=== PATIENT | female | born 1980 | race Caucasian/White ===

== ENCOUNTER 2020-02-26 11:45 | Inpatient (IN) | payer OTHER, SELFPAY ==
[2020-02-26] VITALS (66 sets, daily range): BP systolic 85–130; BP diastolic 47–74; PULSE 40–108; TEMP 36.4–37.4; O2SAT 97–100; BMI 41.2
[2020-02-26] MEDS: Lactated Ringers 1,000 ML 50 ML IV (12:20)
[2020-02-26] MEDS: Lactated Ringers 500 ML 999 ML IV ×2 (12:28→14:45)
[2020-02-26 12:55] LABS: Absolute Lymphocyte Count 1.78 X10^3/uL (0.83-4.51); Absolute Neutrophil Count 11.8 X10^3/uL (2.0-7.7); Basophil# 0.02 X10^3/uL; Basophil% 0.1 % (0-1); Eosinophil# 0.03 X10^3/uL; Eosinophils% 0.2 % (0-5); Hematocrit 31.1 % (37-47); Hemoglobin 10.4 g/dL (12.0-15.0); Lymphocyte # 1.78 X10^3/ul (4.0); Lymphocyte % 12.2 % (19-41); Mean Corp Hgb Conc 33.4 g/dL (32-36); Mean Corpuscular Hgb 29.1 pg (27.0-32.0); Mean Corpuscular Volume 86.9 fL (81-99); Mean Platelet Vol. 11.3 fl (6.2-12.0); Monocyte# 0.76 X10^3/uL; Monocyte% 5.2 % (0-10); NRBC Flagged by Analyzer 0 % (0-5); Neutrophil # 11.84 X10^3/uL (2.7-7.7); Neutrophil % 81.5 % (47-70); Platelet Count 268 K/mm3 (150-450); RBC Distribution Width SD 40.8 fl (35.1-43.9); Red Blood Count 3.58 M/mm3 (4.2-5.4); White Blood Count 14.5 K/mm3 (4.4-11.0)
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
[2020-02-26 13:36] LABS: Mucous, Urine 0 SEEN /hpf (<or=2+)
[2020-02-26 13:43] LABS: Color, Urine Yellow (Yellow); Glucose, Dipstick Normal (Normal); Ketone-Dipstick 5 mg/dl (Negative); Leukocyte Esterase-Dipstick 500 /ul (Negative); Nitrite-Dipstick Negative (Negative); Occult Blood-Urine 10 /ul (Negative); Protein-Dipstick Negative (Negative); Urine Bilirubin Dipstick Negative (Negative); Urine Clarity Sl. Cloudy (Clear); Urine Urobilinogen 1 mg/dl (Normal)
[2020-02-26 13:47] LABS: Rubella IgG 119.2 IU/mL
[2020-02-26 13:53] LABS: Group B Strep DNA By PCR Negative (Negative); Internal Control PASS; Probe Check PASS; Specimen Processing Control PASS
[2020-02-26 13:59] LABS: Bacteria 1+ /hpf (None Seen); Red Blood Cells-Urine 0-5 SEEN /hpf (0-5); Squamous Epithelial Cells - UA 0-5 SEEN /hpf (5-10); White Blood Cells 25-50 SEEN /hpf (0-5)
[2020-02-26 14:13] LABS: Amphetamine Urine VISTA NEGATIVE (<1000 ng/mL); Barbiturate Urine VISTA NEGATIVE (< 200 ng/mL); Benzodiazepine Urine VISTA NEGATIVE (< 200 ng/mL); Cocaine Urine VISTA NEGATIVE (< 300 ng/mL); Ecstacy Urine VISTA NEGATIVE (< 500 ng/mL); Methadone Urine VISTA NEGATIVE (< 300 ng/mL); PCP Urine VISTA NEGATIVE (< 25 ng/mL); THC Urine VISTA NEGATIVE (< 50 ng/mL); Vista UDS pH Range 6
[2020-02-26 14:16] LABS: HIV - WCH Non-Reactive (Nonreactive); Hepatitis B Surface Antigen Non-Reactive (Nonreactive); Hepatitis C Antibody Non-Reactive (Nonreactive)
[2020-02-26] MEDS: fentaNYL-bupivacaine (epidural) 100 ML BAG EPIDURAL (14:20)
[2020-02-26] MEDS: Ondansetron 4 MG/2 ML Vial IV (14:54)
[2020-02-26] MEDS: 0.9% Saline Lock 10 ML Syringe IV ×2 (14:54→19:33)
[2020-02-26 15:13] LABS: Chlamydia Trachomatis by PCR Negative (Negative); Neisserai gonorrhoeae by PCR Negative (Negative); Probe Check PASS; Sample Adequacy Control PASS; Specimen Processing Control PASS
[2020-02-26] MEDS: Oxytocin 30 units/NS 500 ml 30 UNITS/500 ML IV.SOLN IV (15:34)
[2020-02-26] MEDS: Oxytocin 30 units/NS 500 ml 30 UNITS/500 ML IV.SOLN 334 UNITS IV (17:03)
[2020-02-26] MEDS: Methylergonovine 0.2 MG/ML Ampul IM (17:07)
--- NOTE | 2020-02-26 17:13 | PCM.OPRPT ---
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 Her membranes ruptured spontaneously yesterday at 11 AM. In spite of multiple hours of labor she never began having regular uterine contractions. She was therefore brought to the hospital for evaluation and further augmentation. On presentation she was found to be 8 cm. She had an epidural placed and then underwent augmentation with Pitocin. Amniotic Membrane Rupture Type: Spontaneous at home Rupture of Membrane time: 1100 on 02/24 Amniotic Fluid Description: Lightly stained meconium Final ALPA: 02/26/20 Final ALPA Source: LMP Gestational age: 40 Weeks and 0 Days Date of Procedure: 02/26/20 Pre-Operative Diagnosis: Active labor, prolonged rupture of membranes Post-Operative Diagnosis: Liveborn male in ADILSON position Surgery/ Procedure Performed: Spontaneous Vaginal Delivery Type of Anesthesia: Epidural Description of Procedure: Patient began pushing and delivered the head in the ADILSON presentation. The head was delivered atraumatically and a loose nuchal cord ?1 was identified and easily reduced over the 's head. The anterior and posterior shoulders delivered without complication followed by the rest of the infant and the infant was placed on the maternal abdomen. Delayed cord clamping was employed for approximately 60 seconds. Cord was clamped and cut and gentle traction was applied to the cord and the placenta delivered spontaneously immediately following it was noted to be intact with three-vessel cord. The perineum and vagina were inspected and no laceration was noted. EBL was 300 cc. Patient and tolerated delivery well. Presentation: ADILSON Placental Delivery Description: Spontaneous Multi Select Codes - Urinary/Genital Urinary/Genital CPT Codes: 98728 Vaginal Delivery Only
--- NOTE | 2020-02-26 17:22 | DCINST_ITS ---
Discharge Diet: No Restrictions Discharge Activity: Return to Normal Activity, May not drive while taking narcotic pain medications., May Shower May resume sexual activity in: 4-6 weeks Additional Activity Instructions:: Nothing in the vagina for 4-6 weeks. You may return to work/school in 6 weeks. Call your doctor if your incision/area has: Continuous Slow Oozing, Sudden Increased Bleeding, Increased Pain/ Swelling, Increased Redness, Foul Smelling Discharge Call your doctor if you observe: Fever of 101 or Higher Additional Instructions: If you experience any of the following, contact your healthcare provider. * Bleeding that soaks a pad every hour for 2 hours * Fever 100.4 or higher * Unrelieved incision or abdominal pain * Swelling, redness, discharge or bleeding from your incision or episiotomy site * Your incision begins to separate * Problems urinating (including inability to urinate or burning while urinating). * Visual changes * Severe headache * Flu-like symptoms * Pain or redness in one of both of your breasts * Pain, warmth, tenderness or swelling in your legs, especially the calf area * Frequent nausea and vomiting * Symptoms of depression or anxiety If you experience any of the following, call 911 or go to the nearest Emergency Room. * Chest pain * Problems breathing * Seizure activity * Partial or complete paralysis of a body part, slurred speech, weakness or drooping of the face, or a sudden inability to walk or hold your balance Allergies/Adverse Reactions: Allergies No Known Allergies Allergy (Verified 02/26/20 13:56) Medications to take at Discharge Naproxen [Naprosyn] 250 - 500 mg PO Q8H PRN PRN #30 tab 02/26/20 The following prescriptions were given: Naproxen [Naprosyn] 250 - 500 mg PO Q8H PRN PRN #30 tab PRN Reason: MILD PAIN Transmission Status: Received by [facility] When: Call to make an appointment with your doctor in 6 weeks. If you had elevated Blood Pressure or 4th degree laceration you will need to be seen in 2 weeks. Primary Care Physician: KERLINE MORGAN [Other] Test Results: Test results from this visit will be discussed in further detail at your follow- up appointment, if applicable. Proposed Discharge Date: 02/27/20
[2020-02-26] MEDS: miSOPROStol 200 MCG Tablet 1000 MCG RECTAL (17:49)
[2020-02-26] MEDS: Naproxen 250 MG Tablet 500 MG PO (20:39)
--- NOTE | 2020-02-26 20:54 | NURSING ---
pt. declining bath for infant while in hospital, discussed baby bath teaching with pt., verbalized understanding
[2020-02-27] VITALS (8 sets, daily range): BP systolic 96–111; BP diastolic 57–74; PULSE 72–88; RESP 14–18; TEMP 36.1–37.2; O2SAT 98
[2020-02-27] MEDS: Acetaminophen 500 MG Tablet 1000 MG PO (00:11)
[2020-02-27] MEDS: Naproxen 250 MG Tablet 500 MG PO ×2 (04:43→13:21)
--- NOTE | 2020-02-27 08:57 | PN.OBGYN_ITS ---
Patient Problems: Active and Suspected Problems (Last Updated 02/26/20 @ 13:[address] Zulma Flaherty MD) Active labor (Acute) Prolonged rupture of membranes (Acute) Subjective: Patient doing well without complaints. Denies pain. Bleeding is minimal Tolerating PO. Ambulating and voiding without difficulty. Breast feeding without difficulty. Denies chest pain, shortness of breath, calf pain/swelling, fevers, chills, lightheadedness. - Physical Exam Vitals/I&O's: Vital Signs Temp Pulse Resp BP Pulse Ox 97.7 F L 73 14 96/57 L 98 02/27/20 03:06 02/27/20 08:25 02/27/20 03:06 02/27/20 08:25 02/26/20 19:29 Oxygen Delivery Method Room Air Weight: 255 lb 8.252 oz Body Mass Index (BMI) 41.2 Intake and Output for Last 24 Hours 02/25/20 02/26/20 02/27/20 23:59 23:59 23:59 Intake Total 2701.47 / 2701.47 Output Total 910 / 910 Balance 1791.47 / 1791.47 General: Alert, Oriented x3, Cooperative HEENT: Atraumatic, PERRLA, EOMI, Normocephalic Neck: Supple Lungs: Normal air movement Cardiovascular: Regular rate Abdomen: Bowel Sounds Present, Soft, Non Tender, - - Fundus firm Extremities: No edema, No Calf Tenderness Skin: No rashes, No breakdown Neurological: Cranial nerves II-XII grossly intact Psych/Mental Status: Normal Affect, Appropriate Laboratory Results 02/26/20 12:15: Group B Strep DNA Negative, Specimen Comment Not Reportable 02/26/20 12:30: WBC 14.5 H, RBC 3.58 L, Hgb 10.4 L, Hct 31.1 L, MCV 86.9, MCH 29.1, MCHC 33.4, RDW Std Deviation 40.8, RDW Coeff of Cordell 13.0, Plt Count 268, MPV 11.3, Immature Gran % (Auto) 0.800, Neut % (Auto) 81.5 H, Lymph % (Auto) 12.2 L, [place] % (Auto) 5.2, Eos % (Auto) 0.2, Baso % (Auto) 0.1, Absolute Neuts (auto) 11.8 H, Absolute Lymphs (auto) 1.78, Nucleated RBC % 0 02/26/20 12:30: Rubella IgG Antibody 119.2 02/26/20 12:30: RPR Pending 02/26/20 12:30: Blood Type A POSITIVE, Antibody Screen NEGATIVE 02/26/20 12:30: Hep Bs Antigen Non-Reactive, Hepatitis C Antibody Non-Reactive, HIV 1&2 Antibody Non-Reactive 02/26/20 13:10: Urine Opiates Screen NEGATIVE, Urine Methadone Screen NEGATIVE, Ur Barbiturates Screen NEGATIVE, Ur Phencyclidine Scrn NEGATIVE, Ur Amphetamines Screen NEGATIVE, U Methamphetamin-MDMA NEGATIVE, U Benzodiazepines Scrn NEGATIVE, Urine Cocaine Screen NEGATIVE, U Cannabinoids Screen NEGATIVE, Ur Drug Screen Comment 02/26/20 13:10: Chlam trachomat DNA PCR Negative, N.gonorrhoeae DNA (PCR) Negative 02/26/20 13:10: Urine Color Yellow, Urine Clarity Sl. Cloudy, Urine pH 7.0, Ur Specific [place] 1.010, Urine Protein Negative, Urine Glucose (UA) Normal, Urine Ketones 5 H, Urine Occult Blood 10 H, Urine Nitrite Negative, Urine Bilirubin Negative, Urine Urobilinogen 1 H, Ur Leukocyte Esterase 500 H, Urine RBC 0-5 SEEN, Urine WBC 25-50 SEEN, Ur Squamous Epith Cells 0-5 SEEN, Urine Bacteria 1+, Urine Mucus 0 SEEN Current Medications Acetaminophen (Tylenol) 1,000 mg PO Q8H PRN PRN PRN Reason: Pain Score 1-3/10 Last Admin: 02/27/20 00:11 Dose: 1,000 mg Documented by: Bisacodyl (Dulcolax) 10 mg RECTAL UD PRN PRN Reason: If no BM Dibucaine (Dibucaine) 1 applic TOPICAL TID PRN PRN; Protocol PRN Reason: Discomfort Hydrocortisone (Hytone) 1 applic TOPICAL TID PRN PRN; Protocol PRN Reason: Discomfort Methylergonovine Maleate (Methergine) 0.2 mg IM X1 PRN PRN Reason: Excess bleeding/uterine atony Last Admin: 02/26/20 17:07 Dose: 0.2 mg Documented by: Naproxen (Naprosyn) 500 mg PO Q8H PRN PRN PRN Reason: Pain Score 1-3/10 Last Admin: 02/27/20 04:43 Dose: 500 mg Documented by: Ondansetron HCl (Zofran) 4 mg IV Q4H PRN PRN PRN Reason: Nausea Oxycodone HCl (Oxyir) 5 - 10 mg PO Q4H PRN PRN PRN Reason: Pain Score 4-10/10 Senna/Docusate Sodium (Senokot-S, Zo-Colace) 1 - 2 tablet PO DAILY PRN PRN PRN Reason: Constipation Simethicone (Mylicon) 80 mg PO PCHS PRN PRN Reason: Indigestion/Stomach pain Sodium Chloride () 5 - 15 ml IV UD PRN PRN Reason: SALINE FLUSH Last Admin: 02/26/20 19:33 Dose: 10 ml Documented by: Medical Necessity - Tobacco Use Smoking Status: Never smoker Assessment/Plan All Active Problems (Last Updated 02/26/20 @ 13:[address] Zulma Flaherty MD) Active labor (Acute) Prolonged rupture of membranes (Acute) s/p PPD #1 1. routine post delivery care 2. breast feeding- support given 3. rh positive 4. rubella immune 5. Anticipate DC to home later this evening
[2020-03-03 06:28] LABS: Rapid Plasmin Reagin (RPR) NONREACTIVE (NONREACTIVE)
== END 2020-02-27 17:39 | disposition home or self-care (01) | DRG 807 ==
PROVIDERS: Admitting Provider Obstetrics & Gynecology; Referring Provider Obstetrics & Gynecology; Visit Provider Obstetrics & Gynecology
DX: O42.92 Full-term premature rupture of membranes, unspecified as to length of time between rupture and onset of labor (principal); Z37.0 Single live birth; O77.0 Labor and delivery complicated by meconium in amniotic fluid; O69.81X0 Labor and delivery complicated by cord around neck, without compression, not applicable or unspecified; Z3A.40 40 weeks gestation of pregnancy
CPT/HCPCS: 59050; 80307; 81001; 85025; 86592; 86703; 86762; 86803; 86850; 86900; 86901; 87081; 87340; 87491; 87591; 87653; 99218; J7120; A4216; G0378; J2405

== ENCOUNTER → 2021-03-02 13:53 | Outpatient (CLI) | payer OTHER, SELFPAY ==
[2021-03-08 08:17] LABS: HPV APTIMA, High Risk Negative (Negative)
== END ==
PROVIDERS: Visit Provider Obstetrics & Gynecology
DX: Z12.4 Encounter for screening for malignant neoplasm of cervix (principal)
CPT/HCPCS: 87624; 88175; G0145

== ENCOUNTER → 2022-08-06 | Outpatient (CLI) | payer OTHER, SELFPAY ==
[2022-08-06 15:02] LABS: hCG Titer Quant., Serum 918 mIU/mL (1-3)
== END | disposition home or self-care (01) ==
LOC: LAB 12:14
PROVIDERS: Referring Provider Nurse Practitioner Women's Health; Visit Provider Nurse Practitioner Women's Health
DX: O20.0 Threatened abortion (principal); Z3A.00 Weeks of gestation of pregnancy not specified
CPT/HCPCS: 36415; 84702

== ENCOUNTER → 2023-06-18 | Outpatient (CLI) | payer OTHER, SELFPAY ==
[2023-06-18 09:13] LABS: Hemoglobin A1c 5.2 % (3.8-5.6)
[2023-06-18 09:15] LABS: Thyroid Stim Hormone (TSH) 2.42 uIU/mL (0.358-3.74)
[2023-06-18 09:18] LABS: hCG Titer Quant., Serum 72 mIU/mL (1-3)
[2023-06-20 09:08] LABS: Anti-Cardiolipin Ab, IgA, Qn < 9 APL U/mL (0-11); Anti-Cardiolipin Ab, IgG, Qn < 9 GPL U/mL (0-14); Anti-Cardiolipin Ab, IgM, Qn < 9 MPL U/mL (0-12); Beta-2-Glycoprotein I IgA <9 (0-25); Beta-2-Glycoprotein I IgG <9 (0-20); Beta-2-Glycoprotein I IgM <9 (0-32); Dilute Prothrombin Time (dPT) 43.5 sec (0.0-47.6); Dilute Russell Viper Venom 36.2 sec (0.0-47.0); Hexagonal Phase Phospholipid 2 5 sec (0-11); Interpretation Comment: (.); PTT-LA 47.6 sec (0.0-43.5); PTT-LA Mix 44.8 sec (0.0-40.5); Thrombin Time 16.1 sec (0.0-23.0); dPT Confirm Ratio 1.12 Ratio (0.00-1.34)
== END | disposition home or self-care (01) ==
PROVIDERS: Referring Provider Obstetrics & Gynecology; Visit Provider Obstetrics & Gynecology
DX: N92.0 Excessive and frequent menstruation with regular cycle (principal); O20.0 Threatened abortion; N96 Recurrent pregnancy loss; Z3A.00 Weeks of gestation of pregnancy not specified
CPT/HCPCS: 36415; 83036; 84443; 84702; 86146; 86147

== ENCOUNTER → 2023-06-20 | Outpatient (CLI) | payer OTHER, SELFPAY ==
[2023-06-20 08:39] LABS: hCG Titer Quant., Serum 134 mIU/mL (1-3)
== END | disposition home or self-care (01) ==
LOC: PAVLAB 08:00
PROVIDERS: Referring Provider Obstetrics & Gynecology; Visit Provider Obstetrics & Gynecology
DX: N92.0 Excessive and frequent menstruation with regular cycle (principal)
CPT/HCPCS: 36415; 84702

== ENCOUNTER → 2023-07-05 | Outpatient (CLI) | payer OTHER, SELFPAY ==
--- NOTE | 2023-07-05 11:00 | US_ITS ---
HISTORY: viability -- 6-7 weeks gestation for viability. LMP 05/19/2023. TECHNIQUE: Transvaginal and transabdominal pelvic ultrasound was performed. 70 images. COMPARISON: None. FINDINGS: UTERUS: 9.9 x 4.9 x 6.3 cm. Cervix closed. RIGHT OVARY: 1.5 x 3.5 x 4.1 cm with a 1.1 cm dominant follicle. No adnexal masses. LEFT OVARY: 2.2 x 3 x 3.4 cm. No adnexal masses. FREE FLUID: None. INTRAUTERINE GESTATIONAL SAC: Single. Mean sac diameter 9 mm corresponding to 5 weeks 5 days. YOLK SAC: 4 mm. POLE: Absent. US/Transvaginal w/Preg US IMPRESSION: Intrauterine with an estimated gestational age of 5 weeks 5 days based on mean sac diameter. No pole at this time; recommend close short-term interval follow-up to assess viability. Electronically Signed: Ingrid Sanchez MD at 13:38 EST ,
--- OUTSIDE RECORDS SUMMARY | 2023-07-05 12:11 | XMS RPT_ITS | CCD ---
Author Name Unknown Address [address] [place] [address] Organization [facility] Care Team Providers Care Greenhouse Florist Name Role Phone Sosa APONTE Weems Primary Care Provider Allergies Allergy Classification Reported Allergen(s) Allergy Type Date of Onset Reaction(s) Facility (1 source) Codeine Drug Allergy 03-11-2015 Nausea And Vomiting [facility] Medications Current Medications Medication Drug Class(es) Dates Sig (Normalized) Sig (Original) Ascorbic Acid (1 source) Vitamin C Ascorbic Acid (VITAMIN C PO) Take by mouth daily 0 Active Calcium (1 source) Phosphate Binder, Calcium CALCIUM PO Take by mouth 0 Active Magnesium (1 source) MAGNESIUM PO Zhang e by mouth daily 0 Active Vit-Fe Fumarate-FA ( PO) (1 source) Vit-Fe Fumarate-FA ( PO) Take by mouth 0 Active sodium chloride flush 0.9 % injection 3 mL (1 source) Start: 10-20-2021 sodium chloride flush 0.9 % injection 3 mL VITAMIN D PO (1 source) VITAMIN D PO Zhang e by mouth daily Wit K2 0 Active Zinc (1 source) ZINC PO Take by mouth daily 0 Active Completed/Discontinued Medications Medication Drug Class(es) Dates Sig (Normalized) Sig (Original) 50 ml sodium chloride 9 mg/ml injection (2 sources) Start: 10-20-2021 End: 10-20-2021 0.9 % sodium chloride bolus Problems Active Problems Problem Classification Problem Date Documented Da te Episodic/Chronic Hemorrhage during ; abruptio placenta; placenta previa (2 sources) Bleeding from female genital tract during ; Translations: [Antepartum hemorrhage, unspecified, unspecified trimester] Onset: 10-20-2021 Episodic Other congenital anomalies (1 source) Talipes equinovarus; 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] Onset: 03-11-2015 03-11-2015 Chronic Spontaneous (2 sources) Miscarriage; Translations: [Complete or unspecified spontaneous without complication] Onset: 10-20-2021 Episodic Past or Other Problems Problem Classification Problem Date Documented Da te Episodic/Chronic Other complications of (1 source) High risk ; Translations: [Supervision of high risk , unspecified, unspecified trimester] Onset: 03-11-2015 03-11-2015 Episodic Results Test Name Value Interpretation Reference Range Facil ity Vital Signs Date Time Vital Sign Value Performing Clinician Faci lity 10-20-2021 23:34-0400 Diastolic blood pressure 70 mm[Hg] Lia sutton MD Work Phone: [facility] 10-20-2021 23:34-0400 Heart rate 113 /min Lia Tanner MD Work Phone: [facility] 10-20-2021 23:34-0400 Respiratory rate 18 /min Lia Tanner MD Work Phone: [facility] 10-20-2021 23:34-0400 SaO2% (BldA) [Mass fraction] 99 % Lia Tanner MD Work Phone: [facility] 10-20-2021 23:34-0400 Systolic blood pressure 112 mm[Hg] Lia Tanner MD Work Phone: [facility] 10-20-2021 20:18-0400 Body temperature 97.59 [degF] Lia Tanner MD Work Phone: [facility] 10-20-2021 19:47-0400 Body height 167.6 cm Lia Tanner MD Work Phone: [facility] 10-20-2021 19:47-0400 Body mass index (BMI) [Ratio] 33.89 kg/m2 Lia Tanner MD Work Phone: [facility] 10-20-2021 19:47-0400 Body weight 95.25 kg Lia Tanner MD Work Phone: [facility] Encounters Encounter Date Encounter Type Care Provider Facility Start: 07-17-2022 End: 07-17-2022 [facility] Start: 07-17-2022 End: 07-17-2022 Encounter for general adult medical examination without abnormal findings DANK SWAN [facility] Start: 10-20-2021 End: 10-21-2021 Emergency department patient visit Lia Tanner MD Work Phone: [facility] Emergency Dept Procedures Date Procedure Procedure Detail Performing Clinician Start: 10-20-2021 Us preg uterus real time w/image dcmtn transvag Chela Garcia PA-C Work Phone: Start: 10-20-2021 Antibody screen Lia Tanner MD Work Phone: Start: 10-20-2021 Blood typing serologic abo Chela Garcia PA-C Work Phone: Start: 10-20-2021 Comprehensive metabo lic panel Chela Garcia PA-C Work Phone: Start: 10-20-2021 PROTIME/INR & PTT Leeann Garcia PA-C Work Phone: Start: 03-11-2015 Microscopic observat ion [Identifier] in Cervix by Cyto stain Lia Tanner MD Work Phone: Plan of Treatment Date Care Activity Detail Author Start: 07-17-2022 End: 07-17-2022 Patient encounter procedure 07/17/2022 Office Visit Internal Medicine Dank Swan, [address] [place], [place] [id number] [facility] Start: 07-13-2022 Depression Screen Depression Screen [facility] Start: 07-13-2022 DTaP/Tdap/Td vaccine (1 - Tdap) DTaP/Tdap/Td vaccine (1 - Tdap) [facility] Payers Date Payer Category Payer Private Health Insurance [id number] Social History Date Type Detail Facility Start: 03-11-2015 Tobacco smoking stat [facility] Never smoked tobacco [facility] Work Phone: Start: 03-11-2015 Tobacco use and exposure Smokeless tobacco non-user [employer] ([facility]A Work Phone: Start: 07-13-2021 Alcohol intake Current drinke r of alcohol (finding) [employer] ([facility]A Work Phone: Start: 11-01-2017 History SDOH Alcohol Comment occasionally [facility] Work Phone: Start: 07-13-2021 History SDOH Financial 5 [facility] Work Phone: Start: 07-13-2021 History SDOH Food Worry 1 [employer] ([facility]A Work Phone: Start: 07-13-2021 History SDOH Transpo rt Med 2 [employer] ([facility]A Work Phone: Start: 1980 Sex Assigned At Not on file [facility] [email or web address] Work Phone: Start: 10-10-2021 End: 10-20-2021 Exposure to SARS-CoV-2 (event) Not sure [facility] Clinical Note 10-20-2021 Note Date & Type Note Facility 10-20-2021 Note This patient was sig ivy out to me by Chela Garcia PA-C at the end of her shift please see her history and physical on this patient. Upon my examination the patient is awaiting the results of a HOUSEKEEPING ATTENDANT consult for final disposition she is in no distress at this time. Family is at the bedside. ED Course as of 10/20/212320Oct 20, 20212320 TYPE AND SCREEN: ABO Grouping A Rh Type POS Antibody Screen NEG [SC] 2320 HCG, Quantitative, : hCG Quant 9,623 [SC] 2321 Comprehensive Metabolic Panel(!): Sodium 134(!) Potassium 3.9 Chloride 103 CO2 21(!) Anion Gap 11 GLUCOSE, FASTING,GF 156(!) BUN,BUNPL 15 Creatinine 0.87 eGFR >90.0 EGFR IF NonAfrican Citizen Of The [place] 83.4 CALCIUM, SERUM, 282990 9.8 Albumin 4.3 Total Protein 7.3 Bilirubin 0.4 Alk Phos 56 ALT 41(!) AST 38 [SC] 2321 Lipase: Lipase 75 [SC] 2321 Hemogram (CBC)(!): WBC 15.6(!) RBC 4.04 Hemoglobin Quant 11.6(!) Hematocrit 35.3 MCV 87.5 MCH 28.7 MCHC 32.8 RDW 12.8 Platelet Count 293 MPV 8.9 [SC] 2321 BP: 81/60 [SC] ED Course User Index [SC] Mo SHIRA Cortez CNP The patient was examined by the HOUSEKEEPING ATTENDANT resident and was cleared for discharge she is to follow-up with her PCP return for new or worsening symptoms. Impression Vaginal bleeding Miscarriage Disposition Discharge SHIRA Lassiter CNP 10/21/21 0010 [facility] Evaluation note Note Date & Type Note Facility documented in this encounter [facility] Work Phone: Hospital Discharge instructions Attachments Note Date & Type Note Facility Hospital Discharge instructions The following attachments cannot be sent through Care Everywhere.: Vaginal Bleeding (Central African)Miscarriage (Central African)documented in this encounter [facility] Work Phone: Advance Directives No Advanced Directives Records FoundDocuments on File Type Date Recorded Patient Rescue Instructor Expl anation ACP-Advance Directive ACP-Power of Coarse Wire Drawer Summary Purpose Family History No Family History Records FoundNo Family History Records Found Additional Source Comments Reason for Visit (unrecogniz ed section and content) Scheduled Active and Recently Administ ered Medications (unrecognized section and content) Linked Groups Order Group 1: Saline lock IV (COMPLETED) Routine, CONTINUOUS, Starting on Sat10/20/21 at 1945, Until Specified And sodium chloride flush 0.9 % injection 3 mLJump to med 3 mL, IntraVENous, EVERY 8 HOURS, First dose on Sat10/20/21 at 2000, Until Discontinued
Flush line with 3-5 mL
Care Teams (unrecognized sec tion and content) INFORMATION SOURCE (unrecogn ized section and content) DATE CREATED AUTHOR AUTHOR'S ORGANIZ ATION 07/18/2022 [facility] FOR RECORDS PERTAINING TO PATIENTS WHO ARE OR HAVE BEEN ENROLLED IN A CHEMICAL DEPENDENCY/SUBSTANCEABUSE PROGRAM, SOME INFORMATION MAY BE OMITTED. This clinical summary was aggregated from multiple sources. Caution should be exercised in using it in the provision of clinical care. This summary normalizes information from multiple sources, and as a consequence, information in this document may materially change the coding, format and clinical context of patient data. In addition, data may be omitted in some cases. CLINICAL DECISIONS SHOULD BE BASED ON THE PRIMARY CLINICAL RECORDS. [facility]. provides no warranty or guarantee of the accuracy or completeness of information in this document.
== END | disposition home or self-care (01) ==
PROVIDERS: Referring Provider Advanced Practice Midwife; Visit Provider Advanced Practice Midwife
DX: O20.0 Threatened abortion (principal); Z3A.00 Weeks of gestation of pregnancy not specified
CPT/HCPCS: 76817

== ENCOUNTER → 2023-07-20 | Outpatient (CLI) | payer OTHER, SELFPAY ==
--- OUTSIDE RECORDS SUMMARY | 2023-07-20 14:16 | XMS RPT_ITS | CCD ---
Author Name Unknown Address [address] [place] [address] Organization [facility] Care Team Providers Care Tooler Name Role Phone Sosa APONTE Weems Primary [...] 70 mm[Hg] Lia sutton MD Work Phone: [facility] 10-20-2021 23:34-0400 Heart rate 113 /min Lia Tanner MD Work Phone: [facility] 10-20-2021 23:34-0400 Respiratory rate 18 /min Lia Tanner MD Work Phone: [facility] 10-20-2021 23:34-0400 SaO2% (BldA) [Mass fraction] 99 % Lia Tanner MD Work Phone: [facility] 10-20-2021 23:34-0400 Systolic blood pressure 112 mm[Hg] Lia Tanner MD Work Phone: [facility] 10-20-2021 20:18-0400 Body temperature 97.59 [degF] Lia Tanner MD Work Phone: [facility] 10-20-2021 19:47-0400 Body height 167.6 cm Lia Tanner MD Work Phone: [facility] 10-20-2021 19:47-0400 Body mass index (BMI) [Ratio] 33.89 kg/m2 Lia Tanner MD Work Phone: [facility] 10-20-2021 19:47-0400 Body weight 95.25 kg Lia Tanner MD Work Phone: [facility] Encounters Encounter Date Encounter Type Care Provider Facility Start: 07-17-2022 End: 07-17-2022 [facility] Start: 07-17-2022 End: 07-17-2022 Encounter for general adult medical examination without abnormal findings DANK SWAN [facility] Start: 10-20-2021 End: 10-21-2021 Emergency department patient visit Lia Tanner MD Work Phone: [facility] Emergency Dept Procedures Date Procedure Procedure [...] Office Visit Internal Medicine Dank Swan, [address] [place], [place] [id number] [facility] Start: 07-13-2022 Depression Screen Depression Screen [facility] Start: 07-13-2022 DTaP/Tdap/Td vaccine (1 - Tdap) DTaP/Tdap/Td vaccine (1 - Tdap) [facility] Payers Date Payer Category Payer Private Health Insurance [id number] Social History Date Type Detail Facility Start: 03-11-2015 Tobacco smoking stat [facility] Never smoked tobacco [facility] Work Phone: Start: 03-11-2015 Tobacco use and exposure Smokeless tobacco non-user [facility] Work Phone: Start: 07-13-2021 Alcohol intake Current drinke r of alcohol (finding) [facility] Work Phone: Start: 11-01-2017 History SDOH Alcohol Comment occasionally [facility] Work Phone: Start: 07-13-2021 History SDOH Financial 5 [facility] Work Phone: Start: 07-13-2021 History SDOH Food Worry 1 [facility] Work Phone: Start: 07-13-2021 History SDOH Transpo rt Med 2 [facility] Work Phone: Start: 1980 Sex Assigned At Not on file [facility] [employer] Work Phone: Start: 10-10-2021 End: 10-20-2021 Exposure to SARS-CoV-2 (event) Not sure [facility] 10-20-2021 Note Date & Type Note Facility 10-20-2021 Note This patient was sig ivy out to me by Chela Garcia PA-C at the end of her shift please see her history and physical on this patient. Upon my examination the patient is awaiting the results of a DRUG SAFETY PHYSICIAN consult for final disposition she is in [...] Creatinine 0.87 eGFR >90.0 EGFR IF NonAfrican [place]ican 83.4 CALCIUM, SERUM, [id number] 9.8 Albumin 4.3 Total Protein 7.3 Bilirubin [...] CNP The patient was examined by the DRUG SAFETY PHYSICIAN resident and was cleared for discharge she is to follow-up with her PCP return for new or worsening symptoms. Impression Vaginal bleeding Miscarriage Disposition Discharge SHIRA Lassiter CNP 10/21/21 0010 [facility] Evaluation note Note Date & Type Note Facility documented in this encounter [facility] Work Phone: Hospital Discharge instructions Attachments Note Date & Type Note Facility Hospital Discharge instructions The following attachments cannot be sent through Care Everywhere.: Vaginal Bleeding (Bulgarian)Miscarriage (Bulgarian)documented in this encounter [facility] Work Phone: Advance Directives No Advanced Directives Records FoundDocuments on File Type Date Recorded Patient Store Director Expl anation ACP-Advance Directive ACP-Power of Flat Bed Knitter Summary Purpose Family History No Family History [...] DATE CREATED AUTHOR AUTHOR'S ORGANIZ ATION 07/18/2022 [facility] FOR RECORDS PERTAINING TO PATIENTS WHO ARE [...] BE BASED ON THE PRIMARY CLINICAL RECORDS. [facility]. provides no warranty or guarantee of the accuracy or completeness of information in this document.
[2023-07-20 15:37] LABS: hCG Titer Quant., Serum 20805 mIU/mL (1-3)
== END | disposition home or self-care (01) ==
LOC: LAB 14:13
PROVIDERS: Referring Provider Obstetrics & Gynecology; Visit Provider Obstetrics & Gynecology
DX: O26.859 Spotting complicating pregnancy, unspecified trimester (principal); Z3A.00 Weeks of gestation of pregnancy not specified
CPT/HCPCS: 36415; 84702

== ENCOUNTER → 2023-07-22 | Outpatient (CLI) | payer OTHER, SELFPAY ==
--- OUTSIDE RECORDS SUMMARY | 2023-07-22 14:40 | XMS RPT_ITS | CCD ---
Author Name Unknown Address [address] [place] [address] Organization [facility] Care Team Providers Care Non Profit Job Titles Name Role Phone Sosa APONTE Weems Primary [...] 70 mm[Hg] Lia sutton MD Work Phone: [facility] 10-20-2021 23:34-0400 Heart rate 113 /min Lia Tanner MD Work Phone: [facility] 10-20-2021 23:34-0400 Respiratory rate 18 /min Lia Tanner MD Work Phone: [facility] 10-20-2021 23:34-0400 SaO2% (BldA) [Mass fraction] 99 % Lia Tanner MD Work Phone: [facility] 10-20-2021 23:34-0400 Systolic blood pressure 112 mm[Hg] Lia Tanner MD Work Phone: [facility] 10-20-2021 20:18-0400 Body temperature 97.59 [degF] Lia Tanner MD Work Phone: [facility] 10-20-2021 19:47-0400 Body height 167.6 cm Lia Tanner MD Work Phone: [facility] 10-20-2021 19:47-0400 Body mass index (BMI) [Ratio] 33.89 kg/m2 Lia Tanner MD Work Phone: [facility] 10-20-2021 19:47-0400 Body weight 95.25 kg Lia Tanner MD Work Phone: [facility] Encounters Encounter Date Encounter Type Care Provider Facility Start: 07-17-2022 End: 07-17-2022 [facility] Start: 07-17-2022 End: 07-17-2022 Encounter for general adult medical examination without abnormal findings DANK SWAN [facility] Start: 10-20-2021 End: 10-21-2021 Emergency department patient visit Lia Tanner MD Work Phone: [facility] Emergency Dept Procedures Date Procedure Procedure Detail [...] Office Visit Internal Medicine Dank Swan, [address] [place], [place] [id number] [facility] Start: 07-13-2022 Depression Screen Depression Screen [facility] Start: 07-13-2022 DTaP/Tdap/Td vaccine (1 - Tdap) DTaP/Tdap/Td vaccine (1 - Tdap) [facility] Payers Date Payer Category Payer Private Health Insurance [id number] Social History Date Type Detail Facility Start: 03-11-[address] [facility] Never smoked tobacco [facility] Work Phone: Start: 03-11-2015 Tobacco use and exposure Smokeless tobacco non-user [employer] Work Phone: Start: 07-13-2021 Alcohol intake Current drinke r of alcohol (finding) [employer] Work Phone: Start: 11-01-2017 History SDOH Alcohol Comment occasionally [facility] Work Phone: Start: 07-13-2021 History SDOH Financial 5 [facility] Work Phone: Start: 07-13-2021 History SDOH Food Worry 1 [employer] Work Phone: Start: 07-13-2021 History SDOH Transpo rt Med 2 [employer] Work Phone: Start: 1980 Sex Assigned At Not on file [facility] [employer] Work Phone: Start: 10-10-2021 End: 10-20-2021 Exposure [facility] SARS-CoV-2 (event) [facility] 10-20-2021 Note Date & Type Note Facility 10-20-2021 Note This patient was sig ivy out to me by Chela Garcia PA-C at the end of her shift please see her history and physical on this patient. Upon my examination the patient is awaiting the results of a CONFERENCE PLANNER consult for final disposition she is in [...] Creatinine 0.87 eGFR >90.0 EGFR IF NonAfrican Georgian 83.4 CALCIUM, SERUM, [id number] 9.8 Albumin 4.3 Total Protein 7.3 Bilirubin [...] CNP The patient was examined by the CONFERENCE PLANNER resident and was cleared for discharge she is to follow-up with her PCP return for new or worsening symptoms. Impression Vaginal bleeding Miscarriage Disposition Discharge SHIRA Lassiter CNP 10/21/21 0010 [facility] Evaluation note Note Date & Type Note Facility documented in this encounter [facility] Work Phone: Hospital Discharge instructions Attachments Note Date & Type Note Facility Hospital Discharge instructions The following attachments cannot be sent through Care Everywhere.: Vaginal Bleeding (Malagasy)Miscarriage (Malagasy)documented in this encounter [facility] Work Phone: Advance Directives No Advanced Directives Records FoundDocuments on File Type Date Recorded Patient Air Brush Artist Expl anation ACP-Advance Directive ACP-Power of Computer Salesperson Retail Summary Purpose Family History No Family History [...] DATE CREATED AUTHOR AUTHOR'S ORGANIZ ATION 07/18/2022 [facility] FOR RECORDS PERTAINING TO PATIENTS WHO [...] BE BASED ON THE PRIMARY CLINICAL RECORDS. [facility]. provides no warranty or guarantee of the accuracy or completeness of information in this document.
[2023-07-22 15:19] LABS: Absolute Lymphocyte Count 3.07 X10^3/uL (0.83-4.51); Absolute Neutrophil Count 3.5 X10^3/uL (2.0-7.7); Basophil# 0.06 X10^3/uL; Basophil% 0.8 % (0-1); Eosinophil# 0.25 X10^3/uL; Eosinophils% 3.4 % (0-5); Hematocrit 39.2 % (37-47); Hemoglobin 12.8 g/dL (12.0-15.0); Lymphocyte # 3.07 X10^3/ul (0.83-4.51); Lymphocyte % 41.3 % (19-41); Mean Corp Hgb Conc 32.7 g/dL (32-36); Mean Corpuscular Hgb 28.8 pg (27.0-32.0); Mean Corpuscular Volume 88.3 fL (81-99); Mean Platelet Vol. 10.8 fl (6.2-12.0); Monocyte# 0.51 X10^3/uL; Monocyte% 6.9 % (0-10); NRBC Flagged by Analyzer 0 % (0-5); Neutrophil # 3.53 X10^3/uL (2.7-7.7); Neutrophil % 47.3 % (47-70); Platelet Count 270 K/mm3 (150-450); RBC Distribution Width CV 11.8 % (11.6-14.6); RBC Distribution Width SD 37.9 fl (35.1-43.9); Red Blood Count 4.44 M/mm3 (4.2-5.4); White Blood Count 7.4 K/mm3 (4.4-11.0)
[2023-07-22 16:30] LABS: hCG Titer Quant., Serum 20149 mIU/mL (1-3)
[2023-07-22 18:48] LABS: HIV - WCH Non-Reactive (Nonreactive); Hepatitis B Surface Antigen Non-Reactive (Nonreactive); Hepatitis C Antibody Non-Reactive (Nonreactive); Rubella IgG Reactive (Nonreactive); Syphilis Antibodies Non-reactive
== END | disposition home or self-care (01) ==
LOC: LAB 14:17
PROVIDERS: Obstetrics & Gynecology; Referring Provider Advanced Practice Midwife; Visit Provider Advanced Practice Midwife
DX: Z34.90 Encounter for supervision of normal pregnancy, unspecified, unspecified trimester (principal)
CPT/HCPCS: 36415; 84702; 85025; 86703; 86762; 86780; 86803; 86850; 86900; 86901; 87340

== ENCOUNTER → 2023-07-22 | Outpatient (CLI) | payer OTHER, SELFPAY ==
--- NOTE | 2023-07-22 15:42 | US_ITS ---
STUDY: FIRST TRIMESTER OBSTETRICAL ULTRASOUND REASON FOR EXAM: Female, 42 years old bleeding, dating LMP: 07/05/2023 TECHNIQUE: Transabdominal and Transvaginal TECHNICAL QUALITY: Adequate. PRIOR ULTRASOUND: 07/05/2023. FINDINGS: There is visualization of a single gestational sac in a normal intrauterine position. The mean sac diameter (MSD) measures 1.5 cm, indicating an estimated gestational age (EGA) of 6 weeks, 2 days. The gestational sac shape is within normal limits. Indeterminate 6 mm small anechoic structure adjacent to the gestational sac. There is a visualized yolk sac. The yolk sac measures 5 mm. The placenta is non-visualized. There is visualization of a live embryo. The crown-rump length (CRL) measures 3.6 mm, indicating an estimated gestational age (EGA) of 6 weeks, 2 days. There is demonstrated cardiac activity with a heart rate of 117 bpm. The estimated gestation age (EGA) by LMP is 9 weeks, 1 days. The estimated date of delivery (ALPA) by LMP is 02/23/2024. The estimated gestation age (EGA) by US is 6 weeks, 2 days. The estimated date of delivery (ALPA) by US is 03/14/2024. The uterus measures 10.1 x 6.5 x 5.1 cm. There is a 1 cm small probable fibroid. The cervix is closed. The right ovary measures 2.9 x 2.2 x 1.2 cm. There is a 1.2 cm probable corpus luteum cyst. There is no visualized right adnexal mass or complex lesion. The left ovary measures 2.4 x 2.4 x 1.4 cm. There is no left ovarian cyst. There is no visualized left adnexal mass or complex lesion. There is no fluid in the cul de sac. US/Transvaginal w/Preg US IMPRESSION: There is a single intrauterine gestation with ultrasound EGA of 6 weeks 2 days and documented cardiac activity. However, growth since prior study is not adequate and short interval follow-up is recommended. Electronically Signed: Leo Serrato MD at 17:08 EST ,
--- OUTSIDE RECORDS SUMMARY | 2023-07-22 16:16 | XMS RPT_ITS | CCD ---
Author Name Unknown Address [address] [place] [address] Organization [facility] Care Team Providers Care Firewood Cutter Name Role Phone Sosa APONTE Weems Primary [...] 70 mm[Hg] Lia sutton MD Work Phone: [facility] 10-20-2021 23:34-0400 Heart rate 113 /min Lia Tanner MD Work Phone: [facility] 10-20-2021 23:34-0400 Respiratory rate 18 /min Lia Tanner MD Work Phone: [facility] 10-20-2021 23:34-0400 SaO2% (BldA) [Mass fraction] 99 % Lia Tanner MD Work Phone: [facility] 10-20-2021 23:34-0400 Systolic blood pressure 112 mm[Hg] Lia Tanner MD Work Phone: [facility] 10-20-2021 20:18-0400 Body temperature 97.59 [degF] Lia Tanner MD Work Phone: [facility] 10-20-2021 19:47-0400 Body height 167.6 cm Lia Tanner MD Work Phone: [facility] 10-20-2021 19:47-0400 Body mass index (BMI) [Ratio] 33.89 kg/m2 Lia Tanner MD Work Phone: [facility] 10-20-2021 19:47-0400 Body weight 95.25 kg Lia Tanner MD Work Phone: [facility] Encounters Encounter Date Encounter Type Care Provider Facility Start: 07-17-2022 End: 07-17-2022 [facility] Start: 07-17-2022 End: 07-17-2022 Encounter for general adult medical examination without abnormal findings DANK SWAN [facility] Start: 10-20-2021 End: 10-21-2021 Emergency department patient visit Lia Tanner MD Work Phone: [facility] Emergency Dept Procedures Date Procedure Procedure [...] Office Visit Internal Medicine Dank Swan, [address] [place], [place] [id number] [facility] Start: 07-13-2022 Depression Screen Depression Screen [facility] Start: 07-13-2022 DTaP/Tdap/Td vaccine (1 - Tdap) DTaP/Tdap/Td vaccine (1 - Tdap) [facility] Payers Date Payer Category Payer Private Health Insurance [id number] Social History Date Type Detail Facility Start: 03-11-[address] [facility] Never smoked tobacco [facility] Work Phone: Start: 03-11-2015 Tobacco use and exposure Smokeless tobacco non-user [employer] Work Phone: Start: 07-13-2021 Alcohol intake Current drinke r of alcohol (finding) [employer] Work Phone: Start: 11-01-2017 History SDOH Alcohol Comment occasionally [facility] Work Phone: Start: 07-13-2021 History SDOH Financial 5 [facility] Work Phone: Start: 07-13-2021 History SDOH Food Worry 1 [employer] Work Phone: Start: 07-13-2021 History SDOH Transpo rt Med 2 [employer] Work Phone: Start: 1980 Sex Assigned At Not on file [facility] [employer] Work Phone: Start: 10-10-2021 End: 10-20-2021 Exposure to SARS-CoV-2 (event) Not sure [facility] 10-20-2021 Note Date & Type Note Facility 10-20-2021 Note This patient was sig ivy out to me by Chela Garcia PA-C at the end of her shift please see her history and physical on this patient. Upon my examination the patient is awaiting the results of a COMPENSATION ADMINISTRATOR consult for final disposition she is in [...] Creatinine 0.87 eGFR >90.0 EGFR IF NonAfrican Icelandic 83.4 CALCIUM, SERUM, [id number] 9.8 Albumin 4.3 Total Protein 7.3 Bilirubin [...] CNP The patient was examined by the COMPENSATION ADMINISTRATOR resident and was cleared for discharge she is to follow-up with her PCP return for new or worsening symptoms. Impression Vaginal bleeding Miscarriage Disposition Discharge SHIRA Lassiter CNP 10/21/21 0010 [facility] Evaluation note Note Date & Type Note Facility documented in this encounter [facility] Work Phone: Hospital Discharge instructions Attachments Note Date & Type Note Facility Hospital Discharge instructions The following attachments cannot be sent through Care Everywhere.: Vaginal Bleeding (Cuban)Miscarriage (Cuban)documented in this encounter [facility] Work Phone: Advance Directives No Advanced Directives Records FoundDocuments on File Type Date Recorded Patient Material Control Specialist Expl anation ACP-Advance Directive ACP-Power of Patient Experience Coordinator Summary Purpose Family History No Family History [...] DATE CREATED AUTHOR AUTHOR'S ORGANIZ ATION 07/18/2022 [facility] FOR RECORDS PERTAINING TO PATIENTS [...] BE BASED ON THE PRIMARY CLINICAL RECORDS. [facility] provides no warranty or guarantee of the accuracy or completeness of information in this document.
== END | disposition home or self-care (01) ==
LOC: OPUS 15:40
PROVIDERS: Referring Provider Nurse Practitioner Women's Health; Visit Provider Nurse Practitioner Women's Health
DX: O26.859 Spotting complicating pregnancy, unspecified trimester (principal); Z3A.00 Weeks of gestation of pregnancy not specified
CPT/HCPCS: 76817

== ENCOUNTER → 2023-07-24 | Outpatient (CLI) | payer OTHER, SELFPAY ==
[2023-08-05 14:08] LABS: Anti-Cardiolipin Ab, IgA, Qn < 9 APL U/mL (0-11); Anti-Cardiolipin Ab, IgG, Qn < 9 GPL U/mL (0-14); Anti-Cardiolipin Ab, IgM, Qn < 9 MPL U/mL (0-12); Beta-2-Glycoprotein I IgA <9 (0-25); Beta-2-Glycoprotein I IgG <9 (0-20); Beta-2-Glycoprotein I IgM <9 (0-32); Dilute Prothrombin Time (dPT) 56.4 sec (0.0-47.6); Dilute Russell Viper Venom 39.1 sec (0.0-47.0); Hexagonal Phase Phospholipid 2 8 sec (0-11); Interpretation Comment: (.); PTT-LA 74.6 sec (0.0-43.5); PTT-LA Mix 50.9 sec (0.0-40.5); Thrombin Time 13.6 sec (0.0-23.0); dPT Confirm Ratio 1.08 Ratio (0.00-1.34)
== END | disposition home or self-care (01) ==
LOC: PAVLAB 15:30
PROVIDERS: Referring Provider Registered Nurse; Visit Provider Registered Nurse
DX: O02.1 Missed abortion (principal); E72.12 Methylenetetrahydrofolate reductase deficiency; E72.11 Homocystinuria; N96 Recurrent pregnancy loss
CPT/HCPCS: 36415; 81291; 86146; 86147

== ENCOUNTER 2023-07-26 08:02 | Day surgery (SDC) | payer OTHER, SELFPAY ==
--- OUTSIDE RECORDS SUMMARY | 2023-07-26 08:11 | XMS RPT_ITS | CCD ---
Author Name Unknown Address [address] [place] [address] Organization [facility] Care Team Providers Care Apple Turner Name Role Phone Dank Swan DO Primary Care Provider DANK SWNA Attending Unavailable DANK SWAN Primary Care Unavailable Allergies Allergy Classification Reported Allergen(s) Allergy Type Date of Onset Reaction(s) Facility (2 sources) Codeine Drug Allergy 03-11-2015 Nausea And Vomiting [facility] Medications Current Medications Medication Drug Class(es) Dates Sig (Normalized) Sig (Original) Ascorbic Acid (2 sources) Vitamin C ASCORBIC ACID PO Take by mouth. 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] Onset: 03-11-2015 03-11-2015 Chronic Past or Other Problems Problem Classification Problem Date Documented Da te Episodic/Chronic Other complications of (2 sources) High risk ; Translations: [Supervision of high risk , unspecified, unspecified trimester] Onset: 03-11-2015 03-11-2015 Episodic Spontaneous (4 sources) Miscarriage; Translations: [Complete or unspecified spontaneous without complication] Onset: 10-20-2021 Episodic Results Test Name Value Interpretation Reference Range Facil ity Vital Signs Date Time Vital Sign Value Performing Clinician Faci lity 07-22-2023 12:57-0500 Body height 166.4 cm Dank Swan DO Work Phone: [employer] 07-22-2023 12:57-0500 Body mass index (BMI) [Ratio] 40.08 kg/m2 Dank Swan DO Work Phone: [employer] 07-22-2023 12:57-0500 Body temperature 97.3 [degF] Dank Swan DO Work Phone: [employer] 07-22-2023 12:57-0500 Body weight 110.95 kg Dank Swan DO Work Phone: [employer] 07-22-2023 12:57-0500 Diastolic blood pressure 70 mm[Hg] Dank Swan DO Work Phone: [employer] 07-22-2023 12:57-0500 Heart rate 80 /min Dank Swan DO Work Phone: [employer] 07-22-2023 12:57-0500 SaO2% (BldA) [Mass fraction] 98 % Dank Swan DO Work Phone: [employer] 07-22-2023 12:57-0500 Systolic blood pressure 106 mm[Hg] Dank Swan DO Work Phone: [employer] 10-20-2021 23:34-0400 Diastolic blood pressure 70 mm[Hg] Lia Tanner MD Work Phone: [employer] 10-20-2021 23:34-0400 Heart rate 113 /min Lia Tanner MD Work Phone: [employer] 10-20-2021 23:34-0400 Respiratory rate 18 /min Lia Tanner MD Work Phone: [employer] 10-20-2021 23:34-0400 SaO2% (BldA) [Mass fraction] 99 % Lia Tanner MD Work Phone: [employer] 10-20-2021 23:34-0400 Systolic blood pressure 112 mm[Hg] Lia Tanner MD Work Phone: [facility] 10-20-2021 20:18-0400 Body temperature 97.59 [degF] Lia Tanner MD Work Phone: [facility] 10-20-2021 19:47-0400 Body height 167.6 cm Lia Tanner MD Work Phone: [facility] 10-20-2021 19:47-0400 Body mass index (BMI) [Ratio] 33.89 kg/m2 Lia Tanner MD Work Phone: [facility] 10-20-2021 19:47-0400 Body weight 95.25 kg Lia Tanner MD Work Phone: [facility] Encounters Encounter Date Encounter Type Care Provider Facility Start: 07-22-2023 End: 07-22-2023 ambulatory [facility] Start: 07-22-2023 End: 07-22-2023 Encounter for general adult medical examination without abnormal findings [facility] Start: 07-22-2023 End: 07-22-2023 Patient encounter status Dank Swan DO Work Phone: [facility] Work Phone: Start: 07-22-2023 End: 07-22-2023 Periodic preventive med est patient 40-64yrs Dank Swan DO Work Phone: [facility] Internal Medicine Procedures Date Procedure Procedure Detail Performing Clinician [...] PTT Leeann Garcia PA-C Work Phone: Start: 07-20-2021 Mammography Weesm Elsa farrell DO Work Phone: Start: 03-11-2015 Microscopic observat ion [Identifier] in Cervix by Cyto stain Lia Tanner MD Work Phone: Plan of Treatment Date Care Activity Detail Author Start: 2041 RSV Immunization age d 60 or older (1 - 1-dose 60+ series) RSV Immunization aged 60 or older (1 - 1-dose 60+ series) [facility] Start: 11-08-2031 Zoster Vaccines (1 of 2) Zoster Vacc alfredo (1 of 2) [facility] Start: 07-27-2024 End: 07-27-2024 Patient encounter procedure 07/27/2024 8:00 AM EST Office Visit [facility] Internal Medicine [address] [place] [phone] Dank Swan DO [address] [place] [address] [facility] Internal Medicine Start: 03-01-2023 Influenza vaccination Influenza Vacc ine (#1) [facility] Start: 07-20-2022 Screening for malign ant neoplasm of breast Mammogram [facility] Start: 07-17-2022 End: 07-17-2022 Patient encounter procedure 07/17/2022 Office Visit Internal Medicine Dank Swan DO [address] [place] [address] [facility] Start: 07-13-2022 Depression Screen Depression Screen [facility] Start: 07-13-2022 DTaP/Tdap/Td vaccine (1 - Tdap) DTaP/Tdap/Td vaccine (1 - Tdap) [facility] Payers Date Payer Category Payer Private Health Insurance [id number] 2019 Private Health Insurance SARABJIT CONROY [id number] 2019-Present [address] [place] [id number] Commercial [id number] Social History Date Type Detail Facility Start: 03-11-[address] [facility] [employer] Work Phone: Start: 03-11-2015 Tobacco use and exposure Smokeless tobacco non-user [employer] Work Phone: Start: 07-13-2021 End: 07-22-2023 Alcohol intake Current drinker of alcohol (finding) [employer] Work Phone: Start: 11-01-2017 History SDOH Alcohol Comment occasionally [employer] Work Phone: Start: 07-13-2021 History SDOH Financial 5 [employer] Work Phone: Start: 07-13-2021 History SDOH Food Worry 1 [employer] Work Phone: Start: 07-13-2021 History SDOH Transpo rt Med 2 [employer] Work Phone: Start: 1980 Sex Assigned At Not on file [facility] Work Phone: Start: 10-10-2021 End: 10-20-2021 Exposure to SARS-CoV-2 (event) [facility] sure [facility] Start: 07-22-2023 History of Social function [facility] Start: 07-22-2023 Tobacco use panel [facility] History of Present illness Narrative 07-22-2023 Dank SwanDO - 07/22/2023 1:40 PM EST Note Date & Type Note Facility 07-22-2023 History of Presen t illness Narrative Images from the original note were not included. [facility] [address] [facility] [address] Dept: [phone] Dept Loc: [phone] Visit type: Est Reason for Visit: Annual Exam Assessment and Plan 1. Routine medical exam 2. Miscarriage, threatened, early New to me, recurrent for the patient as this would be her fourth consecutive miscarriage after 5 successful pregnancies prior to that. Plan is per her STENOTYPIST. Follow up in about 1 year (around 07/22/2024) for Routine Exam. Reviewed medication benefit/risk/how to take/most common side effects. Patient verbalized understanding, agreed with plan and thanked me for my time. Will follow. Mostrecent labs reviewed today Subjective HPI 1. Routine medical exam: Patient presents for routine yearly exam and is up-to-date on laboratory will have STENOTYPIST order mammography and is not due for any other specific screening at this time. 2. Miscarriage, threatened, early : New, uncertain control the patient is 8 weeks but is been spotting for the last 2 weeks and believes that she is in the process of miscarrying. She has had 3 previous consecutive miscarriages and prior to that 5 successful pregnancies with a miscarriage prior to her first . She is with the same partner, her . She reports that a chiropractor found an elevation in homocysteine and believes that this might be a sign of a MTHFR anomaly. We did discuss the possibility of my ordering this however I think it would be best to see if this is what is recommended by STENOTYPIST post this likely pending miscarriage and if they say it is worthwhile then that should be done. Review of Systems Allergies Allergen Reactions Codeine Nausea And Vomiting Outpatient Medications Prior to Visit Medication Sig Dispense Refill ASCORBIC ACID PO Take by mouth. CALCIUM PO Take by mouth. Chaste Tree (VITEX EXTRACT PO) Take 400 mg by mouth daily. ibuprofen 600 MG tablet Take 1 tablet by mouth 4 times daily as needed for pain. MAGNESIUM PO Take by mouth. VIT-FE FUMARATE-FA PO Take by mouth. VITAMIN D PO Take by mouth. ibuprofen 600 MG tablet Take 600 mg by mouth. miSOPROStol (Cytotec) 200 MCG tablet Take 400 mcg by mouth. Multiple Vitamins-Minerals (ZINC PO) Take by mouth. No facility-administered medications prior to visit. History reviewed. No pertinent past medical history. Social History Tobacco Use Smoking status: Never Smokeless tobacco: Never Substance Use Topics Alcohol use: Yes Past Surgical History: Procedure Laterality Date OTHER SURGICAL HISTORY 11/17/2021 Suction D & C TONSILLECTOMY (HISTORICAL) WISDOM TOOTH EXTRACTION Family History Problem Relation Name Age of Onset Glaucoma Paternal Grandfather Other ([address]) Maternal Grandfather parkinson's disease Thyroid disease Mother Diabetes Maternal Grandmother Objective BP 106/70 (BP Location: Right arm, Patient Position: Sitting, BP Cuff Size: Adult) Pulse 80 Temp 36.3 C (97.3 F) Ht 5' 5.5 (1.664 m) Wt 244 lb 9.6 oz (111 kg) SpO2 98% BMI 40.08 kg/m Physical Exam Constitutional: General: She is not in acute distress. Appearance: Normal appearance. HENT: Head: Normocephalic and atraumatic. Nose: Nose normal. Mouth/Throat: Mouth: Mucous membranes are moist. Eyes: Extraocular Movements: Extraocular movements intact. Pupils: Pupils are equal, round, and reactive to light. Cardiovascular: Rate and Rhythm: Normal rate and regular rhythm. Pulses: Normal pulses. Heart sounds: Normal heart sounds. No murmur heard. Pulmonary: Effort: Pulmonary effort is normal. Breath sounds: Normal breath sounds. No wheezing. Abdominal: General: Abdomen is flat. Bowel sounds are normal. Palpations: Abdomen is soft. Musculoskeletal: General: Normal range of motion. Skin: General: Skin is warm. Findings: No rash. Neurological: General: No focal deficit present. Mental Status: She is alert and oriented to person, place, and time. Cranial Nerves: No cranial nerve deficit. Psychiatric: Mood and Affect: Mood normal. Behavior: Behavior normal. Thought Content: Thought content normal. Judgment: Judgment normal. Data Reviewed and Summarized Labs: Imaging/Testing: Dank Swan DO documented in this encounter [facility] Clinical Note 10-20-2021 Note Date & Type Note Facility 10-20-2021 Note This patient was sig ivy out to me by Chela Garcia PA-C at the end of her shift please see her history and physical on this patient. Upon my examination the patient is awaiting the results of a STENOTYPIST consult for final disposition she is in no distress at this time. Family is at the bedside. ED Course as of 10/20/212320Oct 20, 20212320 TYPE AND SCREEN: ABO Grouping A Rh Type POS Antibody Screen NEG [SC] 2321 HCG, Quantitative, : hCG Quant 9,623 [SC] 2321 Comprehensive Metabolic Panel(!): Sodium 134(!) Potassium 3.9 Chloride 103 CO2 21(!) Anion Gap 11 GLUCOSE, FASTING,GF 156(!) BUN,BUNPL 15 Creatinine 0.87 eGFR >90.0 EGFR IF NonAfrican Beninese 83.4 CALCIUM, SERUM, [id number] 9.8 Albumin 4.3 Total Protein 7.3 Bilirubin 0.4 Alk Phos 56 ALT 41(!) AST 38 [SC] 2321 Lipase: Lipase 75 [SC] 2321 Hemogram (CBC)(!): WBC 15.6(!) RBC 4.04 Hemoglobin Quant 11.6(!) Hematocrit 35.3 MCV 87.5 MCH 28.7 MCHC 32.8 RDW 12.8 Platelet Count 293 MPV 8.9 [SC] 2321 BP: 81/60 [SC] ED Course User Index [SC] SHIRA Lassiter CNP The patient was examined by the STENOTYPIST resident and was cleared for discharge she is to follow-up with her PCP return for new or worsening symptoms. Impression Vaginal bleeding Miscarriage Disposition Discharge SHIRA Lassiter CNP 10/21/21 0010 [facility] Evaluation note Note Date & Type Note Facility documented in this encounter [facility] Work Phone: Evaluation note Note Date & Type Note Facility documented in this encounter [facility] Hospital Discharge instructions Attachments Note Date & Type Note Facility Hospital Discharge instructions The following attachments cannot be sent through Care Everywhere.: Vaginal Bleeding (Austrian)Miscarriage (Austrian)documented in this encounter [facility] Work Phone: Advance Directives No Advanced Directives Records FoundDocuments on File Type Date Recorded Patient Superintendent 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
Care Teams (unrecognized sec tion and content) Apple Turner Relationship Specialty Start Date End Date Dank Swan DO [address] [place] [address] PCP - General 11/01/17 INFORMATION SOURCE (unrecogn ized section and content) DATE CREATED AUTHOR AUTHOR'S ORGANIZ ATION 07/23/2023 [facility] FOR RECORDS PERTAINING TO PATIENTS WHO [...] BE BASED ON THE PRIMARY CLINICAL RECORDS. [employer] provides no warranty or guarantee of the accuracy or completeness of information in this document.
[2023-07-26 08:34] VITALS: BP 116/63; PULSE 73; RESP 18; TEMP 36.6; O2SAT 98; BMI 40.1
--- NOTE | 2023-07-26 08:38 | HP.PCM_ITS ---
History and Physical Date of Admission: 07/26/23 Intake Vital Signs 11/25/2207:49 07/24/2413:34 Height 5 ft 6 in 5 ft 6 in Weight: 246 lb 2 oz BMI 39.7 BP 123/80 H Intake Visit Reasons: New OB, bleeding, had US, [place] [employer] Location Manager Required: No Is patient in pain?: No Allergies No Known Allergies Allergy (Verified 07/24/23 14:35) Medications ascorbate calcium (vitamin C) 500 mg tablet 500 mg PO DAILY 12/22/20 [History Confirmed 07/24/23] calcium carbonate 600 mg-vitamin D3 12.5 mcg (500 unit) capsule (Calcium 600 with Vitamin D3) cap PO 12/22/20 [History Confirmed 07/24/23] magnesium oxide 500 mg capsule 500 mg PO DAILY 12/22/20 [History Confirmed 0 07/24/23] zinc 50 mg tablet 50 mg PO DAILY 03/02/21 [History Confirmed 07/24/23] vitamins no.163-iron bis-gly 20 mg-folate no.10 1 mg tablet (PNV Tabs 20-1) tab PO 07/12/23 [History Confirmed 07/24/23] Last Menstrual Period: 05/19/23 Zika: Zika virus screening: Negative : No PFSH PFSH Medical History (Updated 07/24/23 @ 15:19 by Sophie Cortez CNM) Active labor Prolonged rupture of membranes Spotting in early Surgical History S/P tonsillectomy S/P wisdom tooth extraction Status post dilation and curettage Family History Grandmother Diabetes CVA (cerebral vascular accident)Grandfather Parkinson diseaseSon Bilateral club feet Social History adopted: No household members: spouse and children number of children: 5 current occupational status: employed 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 current occupational exposures/hazards: No pets and animals: No history of recent travel: No sexually active: Yes Smoking Status: Never smoker alcohol intake: current alcohol intake frequency: holidays/special occasions only details: NOT WHILE substance use type: does not use diet: lactose free well-balanced diet: daily or most days caffeine: No eating out: rarely or never during the past year weight has: increased > 10 lbs what type of physical activity do you participate in: none jordan/lutheran: Buddhist seatbelt use: always do you feel safe at home: Yes additional social history: -Amos History 10 Elective abortions Hx Para 5 Spontaneous abortions 4 Hx # Term Pregnancies Ectopic pregnancies Hx # Pregnancies Multiple births # of living children 5 Past Pregnancies Del. Date Name GA/Weeks Outcome Route Bth Weight Gen Labor Lgth Anesthesia Del Locatn Provider FOB Unknown [place]-2011 Unknown [place]-2013 Unknown [place]-2015 Unknown [place]-2017 Unknown [place]-2019 07/14/10 8 spontaneous 10/22/21 11 spontaneous 07/07/22 6 spontaneous 04/22/23 4 spontaneous Delivery Date: 10/22/21 Last Updated by: Yanet Hendricks hemorrhage, hospitalized [facility], retained placenta, D&C in October New OB, bleeding, had US, [place] Details: LANCE SHOEMAKER is a 42 year old who presents for a suction dilation and curettage procedure for an incomplete . Ultrasound prior to her appt showed a 6 week IUP with a heart beat. on her visit 04/23/24 there was noted a very small pole with no heart tones and an irregular appearing gestational sac. The patient was given options for treatment and requeted a D&C with plan to send the products of conception off for ANORA testing. She has had 9 pregnancies and 5 in a row were miscarriages. Her known risk factors are MTHHR and elderly grandmultiparous. OB Visit ALPA Calculator Estimated Delivery Date Method Current WG Current Estimate 03/01/24 Ultrasound #1 8w 3d Other Estimates 02/23/24 LMP (Certain) 9w 3d Estimated Due Date: 03/01/24 Initial Weight: 246 lb Date -?-?-?-?-?-?-?-?-?-?-?-?- EGA Weight BP Urine Prot -?-?-?-?-?-?-?-?-?-?-?-?- Glucose FHR FuHt Pres Dilation -?-?-?-?-?-?-?-?-?-?-?-?- Effaced St Visit Note 07/24/23-?-?-?-?-?-?-?-?-?-?-?-?- 8w 3d 246 lb 2 oz(+2 oz) 123/80 -?-?-?-?-?-?-?-?-?-?-?-?- -?-?-?-?-?-?-?-?-?-?-?-?- LC- no HR , pole measuring 5w6d, GC measuring 6w3d.discussed multiple miscarriages, desires a D&C with anora test, apl panel and MRFTH gene testing. Menstrual History Last Menstrual Period: 05/19/23 Reported LMP: definite Normal amount/duration: Yes Frequency in days: 27-29 On hormonal BC at conception: No hCG+: 06/19/23 Antepartum Record Genetic Screening: Congenital Heart Defect: Other, Neural Tube Defect: Other, Hemoglobinopathy Or Carrier: Patient (MTHFR), Cystic Fibrosis: Other, Chromosome Abnormality: Other, Pelon-Sachs: Other, Hemophilia: Other, Intellectual Disability/Autism: Other, Recurrent Loss/Stillbirth: Patient (4 miscarriages), Other Structural Defect: Patient (G4 son bilateral Club foot), Other Genetic Disease: Other and Maternal Metabolic Disorder: Other Infection History: Live with someone with TB or Exposed to TB: No, Patient or Partner has history of Genital Herpes: No, Rash or Viral illness since last mentrual period: No, Prior GBS-Infected child: No, History of STD: No, HIV Infection: No, History of Hepatitis: No, Recent travel outside of [place]: No, Concern for hepatitis exposure: No, Varicella immune: Yes (immune) and Covid Vaccinated: No Medical History Medical History: Positive: Hypertension (pre eclampsia G2), Seasonal allergies, Continuous [employer]er surgery (D&C) and Operations/hospitalizations (tonsillectomy, wisdom teeth) and Negative: Diabetes, Heart disease, Auto-immune disorder, Kidney disease/UTI, Neurologic/epilepsy, Psychiatric, Depression/ depression, Hepatitis/liver disease, Varicosities/phlebitis, Thyroid dysfunction, Trauma/domestic violence, History of blood transfusions, D (Rh) Sensitized, Pulmonary (e.g.,TB,Asthma), Drug/latex allergies/reactions, Breast, Anesthetic complications, History of abnormal pap, Uterine anomaly/nicolás, Infertility, Anti- retroviral treatment, Relevant family history and Other ACOG First Trimester First Trimester: Discussed ROS Const Denies anorexia, Denies body aches, Denies chills, Denies excessive sweating, Denies fatigue, Denies headache(s) and Denies lethargy ENT Denies headache(s) GI Denies abdominal pain, Denies coffee ground emesis, Reports constipation, Denies cramping and Reports nausea Denies sexual dysfunction, Reports urinary frequency, Denies urinary incontinence, Denies urinary hesitancy, Denies urinary urgency, Denies vaginal discharge, Denies vaginal dryness, Denies vaginal odor and Denies vaginal pruritus Skin/Breast Details: breast discomfort Neuro No headache(s) Endo Denies cold intolerance, Denies deepening of the voice, Denies excessive sweating, Denies fatigue, Denies flushing, Denies heat intolerance, Denies polydipsia and Denies polyphagia Exam Const General: cooperative, healthy appearing, comfortable and no acute distress Neck Neck: normal visual inspection, full ROM and no lymphadenopathy Thyroid: thyroid normal Chest Chest palpation & inspection: normal inspection of the chest Breast inspection: normal inspection of the breasts and normal inspection of the axillae Resp Effort & Inspection: normal respiratory effort, able to speak in complete sentences and symmetric chest movement GI Inspection: normal to inspection Palpation: soft External Female Exam: normal external appearance and normal appearance of the urethra Urethra: normal appearance of the urethra Speculum Exam - Vagina: normal appearance of the vagina Speculum Exam - Cervix: normal appearance of the cervix Bimanual Exam- Vagina & Uterus: uterine size normal (consistent with dates of ) OB/External & Speculum: no bleeding Skin General: rashes and/or lesions noted Neuro General: patient alert, patient awake and patient oriented x3 Psych Appearance: grossly normal and well kempt Coding Level of Care Code OB Routine Diagnoses Advanced maternal age (AMA), 40 years or greater 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 (3) History of recurrent miscarriages: Status: Acute Comment: APL panel. MRTHR gene. D&C declines IVF consult Orders: Orders MTHFR DNA Variant Today E72.11 - Homocystinuria, E72.12 - Methylenetetrahydrofolate reductase deficiency, N96 - Recurrent loss, O02.1 - Missed Beta-2 Glycoprot IgG, A, M Today E72.11 - Homocystinuria, E72.12 - Methylenetetrahydrofolate reductase deficiency, N96 - Recurrent loss, O02.1 - Missed Lupus Anticoagulant Comp Today E72.11 - Homocystinuria, E72.12 - Methylenetetrahydrofolate reductase deficiency, N96 - Recurrent loss, O02.1 - Missed Anticardiolipin IgA,G,M Today E72.11 - Homocystinuria, E72.12 - Methylenetetrahydrofolate reductase deficiency, N96 - Recurrent loss, O02.1 - Missed Anticardiolipin IgG, IgM Today E72.11 - Homocystinuria, E72.12 - Me thylenetetrahydrofolate reductase deficiency, N96 - Recurrent loss, O02.1 - Missed Plan Details After discussing the patient's diagnosis and treatment plan options, patient wishes to proceed with surgical management. I have discussed with the patient the risks, benefits, and alternatives of the procedure which include but are not limited to risks of anesthesia, bleeding, infection, possible damage to bowel, bladder, or surrounding vasculature which could lead to additional surgery to evaluate any complications. Patient agrees to procedure and wishes to proceed. ACOG/uptodate references given for additional information regarding procedure. plan is for a suction dilation and curettage.
--- NOTE | 2023-07-26 08:41 | DCINST_ITS ---
Discharge Instructions Diet Discharge Diet: No restrictions Activity Discharge Activity: Return to Normal Activity, May Shower and May Take a Tub Bath (after 1 week) May resume sexual activity in: 1-2 weeks Weight Bearing Status: Weight bearing as tolerated Lifting Restrictions: none Dressing / Incision Call your doctor if you observe: Fever of 101 or Higher, Using more than 1 pad per hour, Shortness of breath and Uncontrolled pain Follow Up Care Please Follow Up With: Suzan Jain DO When: Call [phone] to schedule appointment. Test Results: Test results from this visit will be discussed in further detail at your follow- up appointment, if applicable. Discharge Plan Admission Primary Reason for Your Visit: dilation and curettage Attending Provider: Suzan Jain Primary Care Provider: KERLINE MORGAN Discharge Orders/Prescriptions Prescriptions: New naproxen 500 mg tablet 500 mg PO BID PRN (Reason: pain) Qty: 20 0RF Continued magnesium oxide 500 mg capsule 500 mg PO DAILY calcium carbonate-vitamin D3 [Calcium 600 with Vitamin D3] 600 mg(1,500mg) - 500 unit capsule 1 cap PO DAILY zinc 50 mg tablet 50 mg PO DAILY PNV Tabs 20-1 20 mg iron- 1 mg tablet 1 tab PO DAILY ferrous sulfate [Iron (ferrous sulfate)] 325 mg (65 mg iron) tablet 325 mg PO DAILY Discontinued ascorbate calcium (vitamin C) 500 mg tablet 500 mg PO DAILY Referrals / Follow Up: KERLINE MORGAN [Other] Disposition Disposition (needs filled in before D/C Order can be placed): Home, Self Care
[2023-07-26] MEDS: Lactated Ringers 1,000 ML 15 ML IV (08:43)
[2023-07-26] MEDS: Doxycycline 100 MG CAPSULE PO (08:44)
--- NOTE | 2023-07-26 09:15 | POC_PTH ---
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 Suzan Jain DO : 1980 BED: DIS: 07/26/2023 SPEC #: [id number] RECD: 07/26/23 09:43 STATUS: JOHNNIE MORALEZ #: [id number] BEAU: 07/26/23 09:[address]: Suzan Jain DEPT: SURGICAL PATHOLOGY RECD BY: Jacinda Sanford ENTERED: 07/26/23 11:05 SP TYPE: PROD CONC Tissues: Product of conception, NOS Procedures: Surgery Specimen Level IV HEADER OPERATION: Suction dilation and curettage PRE-OP DIAGNOSIS: History of recurrent miscarriages TISSUE SUBMITTED: Contents of conception - Anora testing MICROSCOPIC DIAGNOSIS Contents of conception, dilation and curettage: [place]idua, gestational endometrium and immature chorionic villi (products of conception). See comment. SJ:que 07/29/2023 COMMENT The results of Anora study will be reported as an addendum. MICROSCOPIC DESCRIPTION Slides are reviewed. GROSS DESCRIPTION Received fresh for Anora studies labeled with the patient's name is a specimen designated contents of conception. The specimen consists of multiple irregular fragments of pink soft tissue that in aggregate measure 4.0 x 4.0 x 0.5 cm. A portion of tissue is submitted for Anora studies. The entire specimen is submitted in three cassettes. / CYNDI:que 07/26/2023 TC:5 CPT: 98259 ADDENDUM ADDENDUM 08/14/2023 09:30 ANORA MICROARRAY CHROMOSOME ANALYSIS WITH PARENTAL SUPPORT RESULT: Abnormal male MICROARRAY RESULT: arr(16)x3 CLINICAL INTERPRETATION: Abnormal result. Trisomy 16 detected. Trisomy 16 is generally incompatible with survival. Overall, trisomy is found in approximately 45% of miscarriages. Genetic counseling is recommended to discuss the significance of this result. Referral to a local genetic counselor may be considered. Please see complete report in e-chart or EMR
--- NOTE | 2023-07-26 09:28 | PCM.OPRPT ---
Problems Associated Problem List Diagnoses (1) Missed with demise before 20 completed weeks of gestation: Report of Operation Date of Procedure: 07/26/23 Pre-Operative Diagnosis: incomplete at 6 weeks gestational age Post-Operative Diagnosis: incomplete at 6 weeks gestational age Surgery/Procedure Performed:: suction dilation and curettage Description of Surgical Findings:: mild amount of products of conception. Dilated cervix Surgeon: Suzan Jain fur blowing machine attendant: None Type of Anesthesia: Local MAC Specimen's removed: endometrial curetting's Drains: none Estimated Blood Loss (mL): 25cc Fluids Replaced: 500cc Description of Procedure: Patient was taken to the operating room and placed under MAC local anesthesia. She was prepped and draped in the normal sterile fashion the dorsal lithotomy position. Bladder was drained of clear urine and anterior lip of the cervix was grasped and the uterus sounded to 10 cm. Cervix was progressively dilated to allow passage of a 7 curved suction curette. Progressive passes were made removing the retained products of conception without complication. Sharp curettage confirmed complete removal of the retained products. All instruments were removed from the vagina and excellent hemostasis was noted and the patient was taken to recovery in stable condition. Procedure Start Time: 09:17 Procedure Stop Time: :27 Complications none Admit VTE Documentation VTE Present on Admission: Yes VTE Mechan Device Prophylaxis: SCD's VTE Pharm Prophylaxis ordered?: No Multi Select Codes Urinary/Genital Urinary/Genital CPT Codes: 16258 Surg Trtmt missed Ab 1TM
[2023-07-26 09:35] VITALS: BP 116/63; BP 93/56; PULSE 67; RESP 16; TEMP 36.4; O2SAT 94
[2023-07-26 09:40] VITALS: BP 116/63; BP 93/58; PULSE 71; RESP 16; O2SAT 95
[2023-07-26 09:45] VITALS: BP 116/63; BP 99/68; PULSE 58; RESP 16; O2SAT 95
[2023-07-26 09:51] VITALS: BP 116/63; BP 99/68; PULSE 60; RESP 16; TEMP 36.4; O2SAT 96
[2023-07-26 10:51] VITALS: BP 116/63
[2023-07-28 23:22] LABS: Pathology Specimen OB SEE PATHOLOGY REPORT
== END 2023-07-26 11:07 | disposition home or self-care (01) ==
LOC: SDC 08:09 → AC 08:09
PROVIDERS: Referring Provider Obstetrics & Gynecology; Visit Provider Obstetrics & Gynecology
PROC: (CPT 59820; principal; 2023-07-26 09:00)
DX: O03.4 Incomplete spontaneous abortion without complication (principal); E72.11 Homocystinuria; E72.12 Methylenetetrahydrofolate reductase deficiency; Z3A.01 Less than 8 weeks gestation of pregnancy; O99.281 Endocrine, nutritional and metabolic diseases complicating pregnancy, first trimester; O09.511 Supervision of elderly primigravida, first trimester; N96 Recurrent pregnancy loss; O99.893 Other specified diseases and conditions complicating puerperium
CPT/HCPCS: 59820; 01965; 88305; J7120; J2405